=== PATIENT | female | born 1970 | race Caucasian/White ===

== ENCOUNTER 2016-12-21 21:17 | Inpatient (IN) | payer OTHER ==
[2016-12-21 23:18] LABS: Basophils % (Auto) 0.6 % (0.0-1.8); Eosinophils % (Auto) 0.7 % (0.0-4.3); Hematocrit 26.3 % (30.3-42.9); Hemoglobin 8.6 gm/dl (10.1-14.3); Mean Corpuscular HGB Conc 33 % (30-34); Mean Corpuscular Hemoglobin 30 pg (28-32); Mean Corpuscular Volume 92 fl (79-97); Platelet Count 246 K/mm3 (140-440); Red Blood Count 2.85 M/mm3 (3.65-5.03); Red Cell Distribution Width 14.9 % (13.2-15.2); White Blood Count 8.2 K/mm3 (4.5-11.0)
[2016-12-21 23:38] LABS: BUN/Creatinine Ratio 21.2; Calcium 7.9 mg/dL (8.4-10.2); Chloride 102.6 mmol/L (98-107); Potassium 5.9 mmol/L (3.6-5.0)
[2016-12-22] MEDS ORDERED: D50W (25GM) IV ONE (06:27)
[2016-12-22] MEDS ORDERED: NACL 0.9% 1000 ML 1,000 ML IV ONE (06:27)
[2016-12-22] MEDS ORDERED: KIONEX PO ONE (06:29)
[2016-12-22] MEDS ORDERED: D50W (25GM) IV PRN (09:22)
[2016-12-22] MEDS ORDERED: APRESOLINE IV ONE (09:29)
--- NOTE | 2016-12-22 09:41 | XRay Report ---
AP CHEST: HISTORY: Hypertension AP view of the chest demonstrates a normal mediastinal and cardiac contour with clear lungs and normal bony and soft tissue structures. IMPRESSION: Unremarkable AP chest.
[2016-12-22] MEDS ORDERED: ZESTRIL PO SCH (10:00)
[2016-12-22] MEDS ORDERED: NON-FORMULARY (Lisinopril 10 MG) PO SCH (10:00)
--- NOTE | 2016-12-22 10:19 | Ultrasound Report ---
ULTRASOUND RENAL BILATERAL HISTORY: Acute renal failure. TECHNIQUE: transabdominal ultrasound with color Doppler interrogation. FINDINGS: The right kidney measures 11.0 x 4.7 x 4.6cm. Right renal cortex: 1.3cm. The left kidney measures 11.2 x 5.7 x 5.7cm. Left renal cortex: 1.7cm. Compared to 04/30/16. Both kidneys are normal size, contour and position. There is mild increased renal parenchymal echotexture consistent with nonspecific renal parenchymal disease. No focal renal lesion, nephrolithiasis or hydronephrosis. The views of the bladder and the region of the ureters appear normal. IMPRESSION: Slightly echogenic kidneys consistent with renal parenchymal disease.
[2016-12-22] MEDS ORDERED: NORVASC ONE (10:30)
[2016-12-22] MEDS ORDERED: ZESTRIL ONE (10:31)
[2016-12-22] MEDS: NORVASC PO SCH (10:34)
[2016-12-22] MEDS ORDERED: BABY ASPIRIN ONE (10:45)
[2016-12-22] MEDS: BABY ASPIRIN PO SCH (10:45)
--- NOTE | 2016-12-22 12:30 | History and Physical Report ---
History of Present Illness Date of examination: 12/22/16 Date of admission: 12/22/16 09:21 Chief complaint: My potassium is high History of present illness: 46-year-old female with past medical history significant for CKD, diabetes mellitus type 2, hyperlipidemia presented to the emergency department complaining that my potassium is high for the last 2 weeks. Patient said she has chronic kidney disease and went to the doctor and on testing he told her that her potassium is elevated 2 weeks ago. Patient patient followed with Dr. Santos for her CKD. Patient said she has headache and occasional upper back pain. She also has occasional puffiness of the face. Patient denied chest pain , abdominal pain, fever and chills. He denied nausea, vomiting, loss of appetite. REVIEW OF SYSTEMS: GENERAL: no weight change, no fatigue, no fever HEAD: no head ache EYES: no blurry vision, no acute visual loss EARS: no hearing loss, no discharge, no earache NOSE: no stuffiness, no sneezing, no discharge MOUTH, THROAT AND NECK: no bleeding gums, no sore throat, no swollen neck CARDIAC: no palpitations, no dyspnea on exertion, no orthopnea, no PND, no edema , no chest pain RESPIRATORY: no shortness of breath, no wheeze, no cough, no sputum, no hemoptysis, no asthma GI: no decreased appetite, no nausea, no vomiting, no dysphagia, no diarrhea, no constipation, no abdominal pain URINARY: no change in frequency, no urgency, no polyuria, no hematuria, no incontinence MUSCULOSKELETAL: no muscle weakness, no pain, no joint stiffness NEUROLOGIC: no loss of sensation/numbness, no tingling, no tremors, no weakness/ paralysis HEMATOLOGIC: no anemia, no easy bruising SKIN: no rashes ENDOCRINE: no heat/cold intolerance, no polyuria, no polydipsia, no thyroid problems, no diabetes PSYCHIATRIC: no anxiety, no depression, no suicidal ideations Past History Past Medical History: diabetes, hypertension, hyperlipidemia Past Surgical History: Social history: full code. denies: smoking, alcohol abuse, prescription drug abuse, IV drug use Family history: diabetes (mother), hypertension (Mother) Medications and Allergies Allergies Allergy/AdvReac Type Severity Reaction Status Date / Time No Known Allergies Allergy Unverified 04/29/16 08:29 Home Medications Medication Instructions Recorded Confirmed Last Taken Type Aspirin 81 mg PO QDAY 04/29/16 12/21/16 Unknown History AtorvaSTATin [Lipitor] 40 mg PO QHS 04/29/16 12/21/16 Unknown History Insulin NPH, Human [NovoLIN N] 10 unit SQ BID 04/29/16 12/21/16 Unknown History amLODIPine [Norvasc] 5 mg PO QDAY #30 tablet 05/01/16 12/21/16 Unknown Rx Lisinopril 10 mg PO DAILY 12/21/16 12/21/16 Unknown History Active Meds: Active Medications Amlodipine Besylate (Norvasc) 5 mg PO QDAY [facility] Last Admin: 12/22/16 10:34 Dose: 5 mg Aspirin (Baby Aspirin) 81 mg PO QDAY [facility] Last Admin: 12/22/16 10:45 Dose: 81 mg Atorvastatin Calcium (Lipitor) 40 mg PO QHS [facility] Dextrose (D50w (25gm)) 50 ml IV PRN PRN PRN Reason: Hypoglycemia Heparin Sodium (Porcine) (Heparin) 5,000 unit SUB-Q Q8HR [facility] Sodium Chloride (Nacl 0.9% 1000 Ml) 1,000 mls @ 125 mls/hr IV ONCE ONE Stop: 12/22/16 14:26 Last Admin: 12/22/16 08:30 Dose: 125 mls/hr Insulin Aspart (Novolog) 0 units SUB-Q QHS [facility] PRN Reason: Protocol Lisinopril (Zestril) 10 mg PO QDAY [facility] Last Admin: 12/22/16 10:35 Dose: 10 mg Exam - Physical Exam Narrative exam: Not in cardiopulmonary distress. The patient is obese. Vital signs as documented. Head exam is unremarkable. No scleral icterus . Neck is without jugular venous distension, thyromegaly, or carotid bruits. Lungs are clear to auscultation. Cardiac exam reveals regular rate and Rhythm. First and second heart sounds normal. No murmurs, rubs or gallops. Abdominal exam reveals normal bowel sounds, no masses, no organomegaly and no aortic enlargement. Extremities are nonedematous and both femoral and pedal pulses are normal. TIP BANDER: Alert and oriented 3. No focal weakness. - Constitutional Vitals: Temp Pulse Resp BP Pulse Ox 97.9 F 70 16 165/73 100 12/22/16 02:27 12/22/16 11:01 12/22/16 11:01 12/22/16 11:01 12/22/16 11:01 Results - Labs CBC & Chem 7: 12/21/16 22:47 12/21/16 22:47 Labs: Laboratory Last Values WBC 8.2 K/mm3 (4.5-11.0) 12/21/16 22:47 RBC 2.85 M/mm3 (3.65-5.03) L 12/21/16 22:47 Hgb 8.6 gm/dl (10.1-14.3) L 12/21/16 22:47 Hct 26.3 % (30.3-42.9) L 12/21/16 22:47 MCV 92 fl (79-97) 12/21/16 22:47 MCH 30 pg (28-32) 12/21/16 22:47 MCHC 33 % (30-34) 12/21/16 22:47 RDW 14.9 % (13.2-15.2) 12/21/16 22:47 Plt Count 246 K/mm3 (140-440) 12/21/16 22:47 Lymph % (Auto) 24.0 % (13.4-35.0) 12/21/16 22:47 Wallace % (Auto) 6.1 % (0.0-7.3) 12/21/16 22:47 Eos % (Auto) 0.7 % (0.0-4.3) 12/21/16 22:47 Baso % (Auto) 0.6 % (0.0-1.8) 12/21/16 22:47 Lymph # 2.0 K/mm3 (1.2-5.4) 12/21/16 22:47 Wallace # 0.5 K/mm3 (0.0-0.8) 12/21/16 22:47 Eos # 0.1 K/mm3 (0.0-0.4) 12/21/16 22:47 Baso # 0.0 K/mm3 (0.0-0.1) 12/21/16 22:47 Seg Neutrophils % 68.6 % (40.0-70.0) 12/21/16 22:47 Seg Neutrophils # 5.6 K/mm3 (1.8-7.7) 12/21/16 22:47 Sodium 137 mmol/L (137-145) 12/21/16 22:47 Potassium 5.9 mmol/L (3.6-5.0) H 12/21/16 22:47 Chloride 102.6 mmol/L (98-107) 12/21/16 22:47 Carbon Dioxide 23 mmol/L (22-30) 12/21/16 22:47 Anion Gap 17 mmol/L 12/21/16 22:47 BUN 53 mg/dL (7-17) H 12/21/16 22:47 Creatinine 2.5 mg/dL (0.7-1.2) H 12/21/16 22:47 Estimated GFR 21 ml/min 12/21/16 22:47 BUN/Creatinine Ratio 21.20 % 12/21/16 22:47 Glucose 143 mg/dL (65-100) H 12/21/16 22:47 Calcium 7.9 mg/dL (8.4-10.2) L 12/21/16 22:47 - Imaging and Cardiology Chest x-ray: image reviewed (normal chest x-ray) US - abdomen: report reviewed (renal parenchymal disease) Assessment and Plan Assessment and plan: Hyperkalemia Chronic kidney disease Diabetes mellitus type 2 Hypertension - Renal Ultrasound is significant for renal parenchymal disease - Creatinine is 2.3, potassium is 5.9 - Patient was given Kayexalate, we will check BMP - Consult nephrology - Sliding scale insulin - Restart the medication as needed DVT prophylaxis - Heparin Disposition - We will discharge likely tomorrow. Advance Directives: Yes VTE prophylaxis?: Chemical Plan of care discussed with patient/family: Yes
[2016-12-22] MEDS ORDERED: TYLENOL PO PRN (14:44)
[2016-12-22 14:47] LABS: BUN/Creatinine Ratio 18.69; Calcium 7.3 mg/dL (8.4-10.2); Chloride 105.5 mmol/L (98-107); Potassium 5.3 mmol/L (3.6-5.0)
[2016-12-22] MEDS: HEPARIN SUB-Q SCH ×2 (14:55→22:02)
--- NOTE | 2016-12-22 15:28 | Emergency Department Report ---
ED General Adult HPI - General Chief complaint: Recheck/Abnormal Lab/Rx Stated complaint: SENT BY PMD HIGH POTASSIUM LEVEL Time Seen by Provider: 12/22/16 06:24 Source: patient Mode of arrival: Ambulatory Limitations: No Limitations - History of Present Illness Initial comments: She states that she was advised that her potassium was elevated by her primary care provider. She's had some myalgias but no acute back pain. She does not complain of chest pain. She does not complain of any acute change in her urine output. She has taking lisinopril. Apparently she is seen Dr. Santos for her chronic renal insufficiency in the past. -: week(s) Location: back (trapezius area muscular type pain) Consistency: intermittent Improves with: none Worsens with: none Associated Symptoms: denies other symptoms Treatments Prior to Arrival: none - Related Data Home Medications Medication Instructions Recorded Confirmed Last Taken Aspirin 81 mg PO QDAY 04/29/16 12/21/16 Unknown AtorvaSTATin [Lipitor] 40 mg PO QHS 04/29/16 12/21/16 Unknown Insulin NPH, Human [NovoLIN N] 10 unit SQ BID 04/29/16 12/21/16 Unknown Lisinopril 10 mg PO DAILY 12/21/16 12/21/16 Unknown Previous Rx's Medication Instructions Recorded Last Taken Type amLODIPine [Norvasc] 5 mg PO QDAY #30 tablet 05/01/16 Unknown Rx Allergies Allergy/AdvReac Type Severity Reaction Status Date / Time No Known Allergies Allergy Unverified 04/29/16 08:29 ED Review of Systems ROS: Stated complaint: SENT BY PMD HIGH POTASSIUM LEVEL Other details as noted in HPI Constitutional: denies: chills, fever Eyes: denies: eye pain, eye discharge, vision change ENT: denies: ear pain, throat pain Respiratory: denies: cough, shortness of breath, wheezing Cardiovascular: denies: chest pain, palpitations Endocrine: no symptoms reported Gastrointestinal: denies: abdominal pain, nausea, diarrhea Genitourinary: denies: urgency, dysuria, discharge Musculoskeletal: back pain. denies: joint swelling, arthralgia Skin: denies: rash, lesions Neurological: denies: headache, weakness, paresthesias Psychiatric: denies: anxiety, depression Hematological/Lymphatic: denies: easy bleeding, easy bruising ED Past Medical Hx - Past Medical History Hx Hypertension: Yes Hx Diabetes: Yes Additional medical history: High Chlosterol, Kidney disease, - Surgical History Additional Surgical History: X 2 - Social History Smoking Status: Never Smoker Substance Use Type: None - Medications Home Medications: Home Medications Medication Instructions Recorded Confirmed Last Taken Type Aspirin 81 mg PO QDAY 04/29/16 12/21/16 Unknown History AtorvaSTATin [Lipitor] 40 mg PO QHS 04/29/16 12/21/16 Unknown History Insulin NPH, Human [NovoLIN N] 10 unit SQ BID 04/29/16 12/21/16 Unknown History amLODIPine [Norvasc] 5 mg PO QDAY #30 tablet 05/01/16 12/21/16 Unknown Rx Lisinopril 10 mg PO DAILY 12/21/16 12/21/16 Unknown History ED Physical Exam - General Limitations: No Limitations General appearance: alert, in no apparent distress - Head Head exam: Present: atraumatic, normocephalic - Eye Eye exam: Present: normal appearance. Absent: scleral icterus - ENT ENT exam: Present: normal exam, mucous membranes moist - Neck Neck exam: Present: normal inspection. Absent: tenderness, meningismus - Respiratory Respiratory exam: Present: normal lung sounds bilaterally. Absent: respiratory distress - Cardiovascular Cardiovascular Exam: Present: regular rate, normal rhythm. Absent: systolic murmur, diastolic murmur, rubs, gallop - GI/Abdominal GI/Abdominal exam: Present: soft, normal bowel sounds. Absent: distended, tenderness, guarding, rebound, rigid - Extremities Exam Extremities exam: Present: normal inspection - Back Exam Back exam: Present: normal inspection - Neurological Exam Neurological exam: Present: alert, oriented X3, CN II-XII intact. Absent: motor sensory deficit - Psychiatric Psychiatric exam: Present: normal affect, normal mood - Skin Skin exam: Present: warm, dry, intact, normal color. Absent: rash ED Course Vital Signs 12/21/16 12/22/16 12/22/16 22:04 02:27 02:41 Temperature 98.2 F 97.9 F Pulse Rate 80 67 71 Respiratory 16 17 18 Rate Blood Pressure 171/100 Blood Pressure 171/100 [Left] Blood Pressure 163/52 [Right] O2 Sat by Pulse 100 100 99 Oximetry 12/22/16 12/22/16 12/22/16 02:50 03:01 03:31 Temperature Pulse Rate 59 L 60 Respiratory 17 14 15 Rate Blood Pressure 142/64 Blood Pressure [Left] Blood Pressure [Right] O2 Sat by Pulse 100 100 Oximetry 12/22/16 12/22/16 12/22/16 04:01 04:31 05:01 Temperature Pulse Rate 67 65 65 Respiratory 15 16 16 Rate Blood Pressure 123/88 143/53 142/63 Blood Pressure [Left] Blood Pressure [Right] O2 Sat by Pulse 100 100 Oximetry 12/22/16 12/22/16 12/22/16 05:31 06:01 06:31 Temperature Pulse Rate 66 63 69 Respiratory 15 13 13 Rate Blood Pressure 141/61 151/61 159/59 Blood Pressure [Left] Blood Pressure [Right] O2 Sat by Pulse 100 100 100 Oximetry 12/22/16 12/22/16 12/22/16 07:01 07:31 08:01 Temperature Pulse Rate 66 64 67 Respiratory 11 L 16 10 L Rate Blood Pressure 143/60 162/69 159/53 Blood Pressure [Left] Blood Pressure [Right] O2 Sat by Pulse 100 99 100 Oximetry 12/22/16 12/22/16 12/22/16 09:08 09:15 09:51 Temperature Pulse Rate 89 84 Respiratory 11 L 14 Rate Blood Pressure 165/66 181/84 179/77 Blood Pressure [Left] Blood Pressure [Right] O2 Sat by Pulse 100 100 Oximetry 12/22/16 12/22/16 12/22/16 10:01 10:34 10:35 Temperature Pulse Rate 75 90 90 Respiratory 11 L Rate Blood Pressure 174/65 158/71 158/71 Blood Pressure [Left] Blood Pressure [Right] O2 Sat by Pulse 100 Oximetry 12/22/16 11:01 Temperature Pulse Rate 70 Respiratory 16 Rate Blood Pressure 165/73 Blood Pressure [Left] Blood Pressure [Right] O2 Sat by Pulse 100 Oximetry ED Medical Decision Making - Lab Data Result diagrams: 12/21/16 22:47 12/22/16 13:51 Laboratory Results - last 24 hr 12/21/16 12/21/16 12/22/16 22:47 22:47 13:15 WBC 8.2 RBC 2.85 L Hgb 8.6 L Hct 26.3 L MCV 92 MCH 30 MCHC 33 RDW 14.9 Plt Count 246 Lymph % (Auto) 24.0 Grundy % (Auto) 6.1 Eos % (Auto) 0.7 Baso % (Auto) 0.6 Lymph # 2.0 Grundy # 0.5 Eos # 0.1 Baso # 0.0 Seg Neutrophils % 68.6 Seg Neutrophils # 5.6 Sodium 137 Potassium 5.9 H Chloride 102.6 Carbon Dioxide 23 Anion Gap 17 BUN 53 H Creatinine 2.5 H Estimated GFR 21 BUN/Creatinine Ratio 21.20 Glucose 143 H POC Glucose 179 H Calcium 7.9 L 12/22/16 13:51 WBC RBC Hgb Hct MCV MCH MCHC RDW Plt Count Lymph % (Auto) Grundy % (Auto) Eos % (Auto) Baso % (Auto) Lymph # Grundy # Eos # Baso # Seg Neutrophils % Seg Neutrophils # Sodium 138 Potassium 5.3 H Chloride 105.5 Carbon Dioxide 23 Anion Gap 15 BUN 43 H Creatinine 2.3 H Estimated GFR 23 BUN/Creatinine Ratio 18.69 Glucose 163 H POC Glucose Calcium 7.3 L - EKG Data -: EKG Interpreted by Me EKG shows normal: sinus rhythm Rate: normal - EKG Data Interpretation: nonspecific ST-T wave stan (perhaps this very slightly peaked T waves) Critical care attestation.: If time is entered above; I have spent that time in minutes in the direct care of this critically ill patient, excluding procedure time. ED Disposition Clinical Impression: Hyperkalemia, Chronic renal insufficiency, stage III (moderate) Disposition: DC-09 OP ADMIT IP TO THIS HOSP Is pt being admited?: Yes Does the pt Need Aspirin: No Condition: Stable Time of Disposition: 15:35
[2016-12-22] MEDS ORDERED: NOVOLOG SUB-Q SCH (22:00)
--- NOTE | 2016-12-23 01:40 | Admit Criteria Form ---
Admission Criteria Documentation: RENAL FAILURE, CHRONIC Clinical Indications for Admission to Inpatient Care (Place 'X' for any and all applicable criteria): Admission is indicated for ANY ONE of the following (1)(2)(3)(4)(5): [X ]I. Inpatient admission required rather than observation care (Use Renal Failure, Chronic: Observation Care Criteria as appropriate) because of ANY ONE of the following: [ ]a) Volume overload or uremic symptoms (eg, clinically significant pulmonary edema, hypertension, pericarditis, acidosis) too severe for, or not responsive (eg, for over 24 hours) to emergency department or observation care dialysis or treatment regimen (11) [ ]b) Hemodynamic instability that is severe or persistent [ ]c) Respiratory distress that is severe or persistent (11) [ ]d) Clinically significant electrolyte abnormality that requires inpatient care (eg,hyperkalemia with severe ECG findings)[B] [ ]e) Supplement O2 or respiratory therapy for over 24hrs that is performable only in acute inpatient setting [ ]f) Continuous IV infusion of anticoagulation, platelet inhibitor, vasoactive, or Antiarrhythmic medication (15), [ ]g) Pulmonary artery catheter monitoring [ ]h) Temporary pacemaker placement [ ]i) Emergent pericardiocentesis [X ]j) Other condition, treatment or monitoring requiring inpatient admission [ ]II. Unexplained syncope [A] [ ]III. Recurrent seizures [ ]IV. Severe infections not treatable in outpatient setting (eg, peritonitis)(9 ) [ ]V. Cardiac arrhythmias of immediate concern [ ]. Encephalopathy [ ]VII.Bleeding abnormalities (eg, platelet dysfunction) with active (eg, gastrointestinal) bleeding Extended stay beyond goal length of stay may be needed for (3)(4)(35)(36): [ ]a) Continuing uremic complications [ ]b) Comorbidities or complications The original [email or web address] content created by [email or web address] has been revised. The portions of the content which have been revised are identified through the use of italic text or in bold, and [facility] has neither reviewed nor approved the modified material. All other unmodified content is copyright [email or web address]. Please see references footnoted in the original [facility] edition 2016 Admission Criteria Met: Yes
[2016-12-23] MEDS: HEPARIN SUB-Q SCH ×2 (05:58→14:00)
[2016-12-23 08:02] LABS: Basophils % (Auto) 0.6 % (0.0-1.8); Hematocrit 24.7 % (30.3-42.9); Hemoglobin 7.9 gm/dl (10.1-14.3); Mean Corpuscular HGB Conc 32 % (30-34); Mean Corpuscular Hemoglobin 29 pg (28-32); Mean Corpuscular Volume 90 fl (79-97); Platelet Count 218 K/mm3 (140-440); Red Blood Count 2.74 M/mm3 (3.65-5.03); Red Cell Distribution Width 14.5 % (13.2-15.2); White Blood Count 5.2 K/mm3 (4.5-11.0)
[2016-12-23 08:14] LABS: BUN/Creatinine Ratio 15.83; Calcium 7.4 mg/dL (8.4-10.2); Chloride 108.4 mmol/L (98-107)
[2016-12-23] MEDS: BABY ASPIRIN PO SCH (09:36)
--- NOTE | 2016-12-23 09:36 | Consultation ---
History of Present Illness - Reason for Consult Consult date: 12/23/16 chronic renal failure, hyperkalemia Requesting physician: ANAT BROWNING - History of Present Illness This is a 46 yo F with past medical history of Type 2 DM, hyperlipidemia, CKD stage 3-4 baseline Cr around 2.2-2.4mg/dl, who was noted to have persistently elevated hyperkalemia on repeat outpatient labs, despite being off lisinopril for 2 weeks and was instructed to present to ER by Dr. Santos. K upon admission was 5.9, without acute EKG changes, pt was treated medically with keyexelate, D50, IV insulin. Renal consult requested for management of CKD, persistent hyperkalemia. Pt denies CP, SOB, palpitations, SOB, ADAMS, fever, chills, dysuria , rash, abd pain. Denies recent NSAIDs use/ ABX tx w/ bactrim. Past History Past Medical History: diabetes, hypertension, hyperlipidemia Past Surgical History: Social history: full code. denies: smoking, alcohol abuse, prescription drug abuse, IV drug use Family history: diabetes (mother), hypertension (Mother) Medications and Allergies Allergies Allergy/AdvReac Type Severity Reaction Status Date / Time No Known Allergies Allergy Unverified 04/29/16 08:29 Home Medications Medication Instructions Recorded Confirmed Last Taken Type Aspirin 81 mg PO QDAY 04/29/16 12/21/16 Unknown History AtorvaSTATin [Lipitor] 40 mg PO QHS 04/29/16 12/21/16 Unknown History Insulin NPH, Human [NovoLIN N] 10 unit SQ BID 04/29/16 12/21/16 Unknown History amLODIPine [Norvasc] 5 mg PO QDAY #30 tablet 05/01/16 12/21/16 Unknown Rx Lisinopril 10 mg PO DAILY 12/21/16 12/21/16 Unknown History Active Meds: Active Medications Acetaminophen (Tylenol) 650 mg PO Q6H PRN PRN Reason: Pain, Mild (1-3) Last Admin: 12/22/16 14:55 Dose: 650 mg Amlodipine Besylate (Norvasc) 5 mg PO QDAY [facility] Last Admin: 12/22/16 10:34 Dose: 5 mg Aspirin (Baby Aspirin) 81 mg PO QDAY [facility] Last Admin: 12/22/16 10:45 Dose: 81 mg Atorvastatin Calcium (Lipitor) 40 mg PO QHS [facility] Last Admin: 12/22/16 22:02 Dose: 40 mg Dextrose (D50w (25gm)) 50 ml IV PRN PRN PRN Reason: Hypoglycemia Fludrocortisone Acetate (Florinef) 0.1 mg PO QDAY [facility] Heparin Sodium (Porcine) (Heparin) 5,000 unit SUB-Q Q8HR [facility] Last Admin: 12/23/16 05:58 Dose: 5,000 unit Insulin Aspart (Novolog) 0 units SUB-Q QHS [facility] PRN Reason: Protocol Last Admin: 12/22/16 22:02 Dose: Not Given Review of Systems All systems: negative Constitutional: weakness Exam - Vital Signs Vital signs: Vital Signs Temp Pulse Resp BP Pulse Ox 98.2 F 80 16 171/100 100 12/21/16 22:04 12/21/16 22:04 12/21/16 22:04 12/21/16 22:04 12/21/16 22:04 - General Appearance General appearance: well-developed, well-nourished, appears stated age EENT: ATNC, PERRL, mucous membranes moist Neck: Present: neck supple Respiratory: Clear to Ascultation Heart: regular, S1S2 Gastrointestinal: Present: normal, normoactive bowel sounds Integumentary: no rash, other (no edema ) Neurologic: no focal deficit, alert and oriented x3, strength 5/5, CN 3-12 intact Psychiatric: mood/affect appropriate, cooperative Results - Lab Results 12/23/16 06:49 12/23/16 06:49 Most recent lab results Calcium 7.4 mg/dL (8.4-10.2) L 12/23/16 06:49 Assessment and Plan - Patient Problems (1) Hyperkalemia Current Visit: Yes Status: Acute Plan to address problem: Hyperkalemia due to underlying CKD, also suspect RTA type 4, will start fludrocortison 0.1mg po qd. Pt would benefit from valtessa as outpatient, if hyperkalemia persists. Stable for discharge from renal stand point on florinef, since K improved to 5 with medical treatment. (2) Chronic renal insufficiency, stage III (moderate) Current Visit: Yes Status: Acute Plan to address problem: likely due to diabetic nephropathy/hypertensive nephrosclerosis. renal function at baseline (3) HTN (hypertension) Current Visit: No Status: Chronic Qualifiers: Hypertension type: essential hypertension Qualified Code(s): I10 - Essential (primary) hypertension Plan to address problem: monitor BP on current meds (4) Diabetes mellitus type 2 in obese Current Visit: No Status: Chronic Plan to address problem: glucose control as per primary attending
[2016-12-23 09:37] VITALS: BP 140/60
[2016-12-23] MEDS: NORVASC PO SCH (09:37)
[2016-12-23] MEDS ORDERED: FLORINEF PO SCH (10:00)
--- NOTE | 2016-12-23 11:47 | Discharge Summary ---
Providers - Providers Date of Admission: 12/22/16 09:21 Date of discharge: 12/23/16 Attending physician: ANAT BROWNING MD 12/22/16 12:36 Consult to Physician [CONS] Routine Consulting Provider: EULALIO GARDNER Reason For Exam: CKD, hyperkalemia Place consult to:: [facility] Notified:: answering service Phone number called:: [phone] Was contact made?: Yes If yes, spoke with:: ketan Time called:: 13:46 Primary care physician: SHREDDER TENDER PEAT Hospitalization Reason for admission: Hyperkalemia Condition: Stable Disposition: DC-01 TO HOME OR SELFCARE Time spent for discharge: 31 minutes - Discharge Diagnoses (1) Chronic renal insufficiency, stage III (moderate) Status: Acute (2) Hyperkalemia Status: Acute (3) Diabetes mellitus type 2 in obese Status: Chronic (4) HTN (hypertension) Status: Chronic Qualifiers: Hypertension type: essential hypertension Qualified Code(s): I10 - Essential (primary) hypertension (5) Hyperlipidemia Status: Chronic Qualifiers: Hyperlipidemia type: H (6) Obesity (BMI 30-39.9) Status: Chronic Core Measure Documentation - Palliative Care Palliative Care/ Comfort Measures: Not Applicable - Core Measures Any of the following diagnoses?: none Exam - Physical Exam Narrative exam: Not in cardiopulmonary distress. The patient is obese. Vital signs as documented. Head exam is unremarkable. No scleral icterus . Neck is without jugular venous distension, thyromegaly, or carotid bruits. Lungs are clear to auscultation. Cardiac exam reveals regular rate and Rhythm. First and second heart sounds normal. No murmurs, rubs or gallops. Abdominal exam reveals normal bowel sounds, no masses, no organomegaly and no aortic enlargement. Extremities are nonedematous and both femoral and pedal pulses are normal. GENERAL MAINTENANCE MECHANIC: Alert and oriented 3. No focal weakness. - Constitutional Vitals: Temp Pulse Resp BP Pulse Ox 98.6 F 80 20 140/60 98 12/23/16 08:28 12/23/16 09:37 12/23/16 08:28 12/23/16 09:37 12/23/16 08:28 Plan Activity: no restrictions Weight Bearing Status: Full Weight Bearing Diet: low cholesterol, low salt, diabetic, renal Follow up with: BEATRIZ BOWER MD [Primary Care Provider] - 7 Days Prescriptions: Fludrocortisone [Florinef] 0.1 mg PO QDAY #14 tablet
== END 2016-12-23 15:15 | disposition home or self-care (01) | DRG 683 ==
LOC: ED 21:17 → 3A 12-22 09:21
PROVIDERS: ADMIT Internal Medicine; ATTEND Internal Medicine
DX: I12.9 Hypertensive chronic kidney disease with stage 1 through stage 4 chronic kidney disease, or unspecified chronic kidney disease (principal); Z68.41 Body mass index [BMI] 40.0-44.9, adult; E87.5 Hyperkalemia; E78.5 Hyperlipidemia, unspecified; E11.22 Type 2 diabetes mellitus with diabetic chronic kidney disease; E78.00 Pure hypercholesterolemia, unspecified; N18.3 Chronic kidney disease, stage 3 (moderate); E66.9 Obesity, unspecified; Z98.891 History of uterine scar from previous surgery; Z83.3 Family history of diabetes mellitus; Z82.49 Family history of ischemic heart disease and other diseases of the circulatory system
CPT/HCPCS: 36415; 71010; 76770; 80048; 82962; 85025; 93005; 93010; A9270-GY; J1644; J1815; J7030